=== PATIENT | female | born 1990 | race Caucasian/White ===

== ENCOUNTER 2017-09-15 16:47 | Emergency (ER) | payer SELFPAY ==
[2017-09-15 16:48] VITALS: BMI 25.2
[2017-09-15 17:30] VITALS: BP 126/82; PULSE 100; RESP 18; TEMP 98.8; O2SAT 97
[2017-09-15] MEDS ORDERED: Naproxen 550 mg Tab PO STA (18:27)
--- NOTE | 2017-09-15 18:30 | C.PDOC ---
History Of Present Illness 27-year-old female, presents to the emergency department with complaints of sore throat, non-productive cough, bodyaches, fever and generalized headache for the past two days. Denies recent travel, rashes, nausea/vomiting, dizziness , change in bowel habits, or any other associated symptoms. No other complaints at this time Time Seen by Provider: 09/15/17 17:55 Chief Complaint (Nursing): ENT Problem History Per: Patient History/Exam Limitations: None Past Medical History Reviewed: Historical Data, Nursing Documentation, Vital Signs Vital Signs: Last Vital Signs Temp 98.8 F 09/15/17 17:28 Pulse 100 H 09/15/17 17:28 Resp 18 09/15/17 17:28 BP 126/82 09/15/17 17:28 Pulse Ox 97 09/15/17 18:29 Family History: States: No Known Family Hx - Social History Hx Tobacco Use: Yes Hx Alcohol Use: Yes Hx Substance Use: No - Immunization History Hx Tetanus Toxoid Vaccination: No Hx Influenza Vaccination: No Hx Pneumococcal Vaccination: No Review Of Systems Constitutional: Positive for: Fever, Malaise ENT: Positive for: Throat Pain. Negative for: Ear Pain, Nose Discharge, Nose Congestion, Throat Swelling Respiratory: Positive for: Cough. Negative for: Shortness of Breath Gastrointestinal: Negative for: Vomiting Musculoskeletal: Positive for: Neck Pain. Negative for: Back Pain Skin: Negative for: Rash Neurological: Positive for: Headache. Negative for: Weakness, Numbness, Dizziness Physical Exam - Physical Exam Appears: Well, Non-toxic, No Acute Distress Skin: Normal Color, Warm, Dry, No Rash Head: Normacephalic Eye(s): bilateral: PERRL Nose: Normal Oral Mucosa: Moist Lips: Normal Appearing Throat: No Erythema, No Exudate, Other (Uvula midline) Neck: Normal ROM, Trachea Midline, Supple, Other ((-)meningeal signs. Cervical lymphadenopathy) Cardiovascular: Rhythm Regular, No Murmur Respiratory: Normal Breath Sounds, No Accessory Muscle Use, No Stridor, No Wheezing Extremity: Normal ROM, No Deformity, No Swelling Neurological/Psych: Oriented x3, Normal Speech ED Course And Treatment O2 Sat by Pulse Oximetry: 97 (RA) Pulse Ox Interpretation: Normal Progress Note: Patient treated with Naproxen, Tamiflu and Sudafed. On re- evaluation, Patient is resting comfortably, tolerating PO, and is afebrile at this time. Clinical signs and symptoms are not suggestive of sepsis, meningitis , UTI, pneumonia, intra-abdominal pathology, or cellulitis. Patient will be discharged home, and instructed to follow up with his/her physician in 1-2 days without fail. Patient was instructed to return for any worsening symptoms, persistent fever, neck pain, rash, abdominal pain, or vomiting. Disposition Counseled Patient/Family Regarding: Diagnosis, Need For Followup, Rx Given - Disposition Referrals: [facility] [Outside] Disposition: HOME/ ROUTINE Disposition Time: 18:30 Condition: STABLE Additional Instructions: FOLLOW UP WITH YOUR DOCTOR/CLINIC IN 1-2 DAYS DRINK PLENTY OF FLUIDS USE MEDICATIONS DIRECTED RETURN TO ER IF SYMPTOMS WORSEN Prescriptions: Naproxen 375 mg PO BID PRN #20 tablet PRN Reason: pain Oseltamivir Phosphate [Tamiflu] 75 mg PO BID #10 capsule Phenol/Glycerin [Chloraseptic Max Alden] 1 spray MM Q6 PRN #1 spray PRN Reason: THROAT PAIN Pseudoephedrine [Sudafed] 60 mg PO Q6 PRN #12 tab PRN Reason: Nasal Congestion Instructions: Viral Syndrome (DC) Forms: [facility] (Egyptian), Work Excuse Print Language: LUXEMBOURGISH - Clinical Impression Clinical Impression: Viral syndrome, Influenza-like illness - Scribe Statement The provider has reviewed the documentation as recorded by the Scribe (Naila Cartwright) All medical record entries made by the Scribe were at my direction and personally dictated by me. I have reviewed the chart and agree that the record accurately reflects my personal performance of the history, physical exam, medical decision making, and the department course for this patient. I have also personally directed, reviewed, and agree with the discharge instructions and disposition.
[2017-09-15] MEDS ORDERED: Naproxen 550 mg Tab PO ONE (18:38)
== END 2017-09-15 18:40 | disposition home or self-care (01) ==
LOC: C.ER 16:47
DX: J11.1 Influenza due to unidentified influenza virus with other respiratory manifestations (principal); Z72.0 Tobacco use

== ENCOUNTER 2017-10-01 11:15 | Emergency (ER) | payer OTHER ==
[2017-10-01 11:15] VITALS: BMI 25.2
[2017-10-01 11:20] VITALS: BP 131/85; PULSE 90; RESP 18; TEMP 97.7; O2SAT 99
--- NOTE | 2017-10-01 11:35 | C.PDOC ---
History Of Present Illness 27 year old female presents to the emergency room complaining of pain to the right buttock after falling today. States she slipped and fell; No LOC, dizziness, head trauma, or other injury. Patient denies any back pain, focal weakness, or changes in sensation. Time Seen by Provider: 10/01/17 11:28 Chief Complaint (Nursing): Back Pain History Per: Patient History/Exam Limitations: no limitations Onset/Duration Of Symptoms: Days (x1) Current Symptoms Are (Timing): Still Present Associated Symptoms: None Past Medical History Reviewed: Historical Data, Nursing Documentation, Vital Signs Vital Signs: Last Vital Signs Temp 97.7 F 10/01/17 11:18 Pulse 90 10/01/17 11:18 Resp 18 10/01/17 11:18 BP 131/85 10/01/17 11:18 Pulse Ox 99 10/01/17 11:35 - Medical History PMH: GERD Surgical History: No Surg Hx Family History: States: No Known Family Hx - Social History Hx Tobacco Use: Yes Hx Alcohol Use: Yes Hx Substance Use: No - Immunization History Hx Tetanus Toxoid Vaccination: No Hx Influenza Vaccination: No Hx Pneumococcal Vaccination: No Review Of Systems Musculoskeletal: Positive for: Other (Right buttock pain). Negative for: Back Pain (to midline) Neurological: Negative for: Weakness, Numbness (and tingling), Headache, Other ( LOC) Physical Exam - Physical Exam Appears: No Acute Distress Skin: Normal Color, Warm, Dry Head: Atraumatic, Normacephalic Eye(s): bilateral: Normal Inspection, PERRL, EOMI Nose: Normal Oral Mucosa: Moist Neck: Normal ROM, Supple Chest: Symmetrical Back: No CVA Tenderness, No Vertebral Tenderness Extremity: Normal ROM, Tenderness (mild tenderness to right mid buttock), No Swelling (or ecchymosis) Pulses: Left Dorsalis Pedis: Normal, Right Dorsalis Pedis: Normal Neurological/Psych: Oriented x3, Normal Speech, Normal Motor, Normal Sensation Gait: Steady 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 [Outside] Disposition: HOME/ ROUTINE Disposition Time: 11:35 Condition: GOOD Additional Instructions: ice packs 1/2 hour per hour to R buttock Motrin 400-600 mg every 6 hours as needed no heat therapies- makes this kind of contusion/strain worse. Follow-up in our outpatient Clinic as needed. Instructions: Contusion (DC) Forms: [employer] (Turkish) - Clinical Impression Clinical Impression: Contusion, buttock - Scribe Statement The provider has reviewed the documentation as recorded by the Duke Serrano Provider Attestation: All medical record entries made by the Duke were at my direction and personally dictated by me. I have reviewed the chart and agree that the record accurately reflects my personal performance of the history, physical exam, medical decision making, and the department course for this patient. I have also personally directed, reviewed, and agree with the discharge instructions and disposition.
== END 2017-10-01 11:48 | disposition home or self-care (01) ==
LOC: C.ER 11:15
DX: S30.0XXA Contusion of lower back and pelvis, initial encounter (principal); W01.0XXA Fall on same level from slipping, tripping and stumbling without subsequent striking against object, initial encounter; Z72.0 Tobacco use